=== PATIENT | female | born 1960 | race Caucasian/White ===

== ENCOUNTER 2023-07-16 07:18 | Inpatient (IN) | payer BC ==
[2023-07-16] MEDS ORDERED: NITROGLYCERIN SL TABS 0.4 MG TAB SUBLINGUAL STA ×3 (07:41)
[2023-07-16] MEDS ORDERED: ASPIRIN 81 MG PO STA (07:41)
--- NOTE | 2023-07-16 07:44 | ED ---
General Adult HPI - General Chief complaint: Chest Pain Stated complaint: chest pain Time Seen by Provider: 07/16/23 07:26 Source: patient, RN notes reviewed Mode of arrival: ambulatory Limitations: no limitations - History of Present Illness Initial comments: Patient is a pleasant 63-year-old female presenting to the emergency department with concerns for chest discomfort. Onset of symptoms was 2-3 days ago. Patient is having intermittent symptoms. Discomfort is currently 6/10. Discomfort feels dull. Patient did have some radiation to the arm. No dyspnea. No nausea. No diaphoresis. No history of similar symptoms previously. No calf pain. - Related Data Home Medications Medication Instructions Recorded Confirmed Cetirizine HCl [Zyrtec] 10 mg PO DAILY 07/05/16 07/16/23 Calcium(Unknown Dose) 1 tab PO DAILY 07/16/23 07/16/23 Fish Oil(Unknown Dose) 1 cap PO DAILY 07/16/23 07/16/23 Levothyroxine Sodium [Synthroid] 175 mcg PO DAILY 07/16/23 07/16/23 Vitamin B-12(Unknown Dose) 1 tab PO DAILY 07/16/23 07/16/23 Vitamin C(Unknown Dose) 1 tab PO DAILY 07/16/23 07/16/23 Vitamin D3(Unknown Dose) 1 tab PO DAILY 07/16/23 07/16/23 Allergies Allergy/AdvReac Type Severity Reaction Status Date / Time No Known Allergies Allergy Verified 07/16/23 08:12 Review of Systems ROS Statement: Those systems with pertinent positive or pertinent negative responses have been documented in the HPI. ROS Other: All systems not noted in ROS Statement are negative. Constitutional: Denies: fever Eyes: Denies: eye pain Respiratory: Denies: dyspnea Cardiovascular: Reports: chest pain Musculoskeletal: Denies: back pain Past Medical History Past Medical History: Thyroid Disorder Additional Past Medical History / Comment(s): Seasonal Allergies; Back problems History of Any Multi-Drug Resistant Organisms: None Reported Past Surgical History: Unable to Obtain, Back Surgery Past Psychological History: No Psychological Hx Reported Smoking Status: Never smoker Past Alcohol Use History: Occasional Past Drug Use History: None Reported General Exam Limitations: no limitations General appearance: alert, in no apparent distress Head exam: Present: atraumatic Eye exam: Present: normal appearance Neck exam: Present: normal inspection Respiratory exam: Present: normal lung sounds bilaterally. Absent: chest wall tenderness Cardiovascular Exam: Present: regular rate, normal rhythm Expanded Peripheral pulses: 2+: Radial (R), Radial (L), Dorsalis Pedis (R), Dorsalis Pedis (L) GI/Abdominal exam: Present: soft. Absent: tenderness Extremities exam: Present: normal inspection. Absent: pedal edema, calf tenderness Neurological exam: Present: alert Psychiatric exam: Present: normal affect, normal mood Skin exam: Present: normal color Course Vital Signs 07/16/23 07/16/23 07/16/23 07:23 07:25 08:15 Temperature 98.3 F Pulse Rate 78 63 Respiratory 20 18 Rate Blood Pressure 154/86 142/86 O2 Sat by Pulse 98 99 99 Oximetry EKG Findings - EKG Results: EKG: interpreted by SOMMERD (Right axis.), sinus rhythm, normal QRS, normal ST/T Medical Decision Making - Medical Decision Making Was pt. sent in by a medical professional or institution (, PA, MATHEMATICAL PHYSICIST, urgent care, hospital, or residential...) When possible be specific @ -[No] Did you speak to anyone other than the patient for history (EMS, parent, family, police, friend...)? What history was obtained from this source @ -[No] Did you review nursing and triage notes (agree or disagree)? Why? @ -[I reviewed and agree with nursing and triage notes] Were old charts reviewed (outside hosp., previous admission, EMS record, old EKG, old radiological studies, urgent care reports/EKG's, residential records)? Report findings @ -[No old charts were reviewed] Differential Diagnosis (chest pain, altered mental status, abdominal pain women, abdominal pain men, vaginal bleeding, weakness, fever, dyspnea, syncope, headache, dizziness, GI bleed, back pain, seizure, CVA, palpatations, mental health, musculoskeletal)? @ -Differential Chest Pain: Stable Angina, Unstable Angina, STEMI, NSTEMI Aortic Dissection, Pneumothorax, Musculoskeletal, Esophageal Spasm GERD, Cholecystitis, Pancreatitis, Zoster, this is not meant to be an all-inclusive list. EKG interpreted by me (3pts min.). @ -[As above] X-rays interpreted by me (1pt min.). @ -Chest x-ray shows right suprahilar fullness CT interpreted by me (1pt min.). @ -[None done] U/S interpreted by me (1pt. min.). @ -[None done] What testing was considered but not performed or refused? (CT, X-rays, U/S, labs)? Why? @ -[None] What meds were considered but not given or refused? Why? @ -[None] Did you discuss the management of the patient with other professionals (prof mery i.e. , PA, MATHEMATICAL PHYSICIST, lab, RT, psych nurse, group social worker, manager water, teacher, homicide squad commanding officer, trimming caser)? Give summary @ -Case discussed with [facility], Dr. Peace who will admit covering hospital call. Cardiology was placed on consult. Was smoking cessation discussed for >3mins.? @ -[No] Was critical care preformed (if so, how long)? @ -[No] Were there social determinants of health that impacted care today? How? (Homelessness, low income, unemployed, alcoholism, drug addiction, tra nsportation, low edu. Level, literacy, decrease access to med. care, long-term, rehab)? @ -[No] Was there de-escalation of care discussed even if they declined (Discuss DNR or withdrawal of care, Hospice)? DNR status @ -[No] What co-morbidities impacted this encounter? (DM, HTN, Smoking, COPD, CAD, Cancer, CVA, ARF, Chemo, Hep., AIDS, mental health diagnosis, sleep apnea, morbid obesity)? @ -[None] Was patient admitted / discharged? Hospital course, mention meds given and route, prescriptions, significant lab abnormalities, going to OR and other pertinent info. @ -Patient reevaluated and updated. Symptoms improved with aspirin and nitroglycerin. Patient will be held with cardiology consult and repeat testing and computed tomography scan. Admitted. Admission orders written. Undiagnosed new problem with uncertain prognosis? @ -[No] Drug Therapy requiring intensive monitoring for toxicity (Heparin, Nitro, Insulin, Cardizem)? @ -[No] Were any procedures done? @ -[No] Diagnosis/symptom? @ -Chest pain Acute, or Chronic, or Acute on Chronic? @ -Acute Uncomplicated (without systemic symptoms) or Complicated (systemic symptoms)? @ -[default] Side effects of treatment? @ -[No] Exacerbation, Progression, or Severe Exacerbation? @ -[No] Poses a threat to life or bodily function? How? (Chest pain, USA, MA, pneumonia, PE, COPD, DKA, ARF, appy, cholecystitis, CVA, Diverticulitis, Homicidal, Suicidal, threat to staff... and all critical care pts) @ -[No] - Lab Data Result diagrams: 07/16/23 07:41 07/16/23 07:41 Lab Results 07/16/23 07/16/23 07/16/23 Range/Units 07:41 07:41 07:41 WBC 5.9 (3.8-10.6) k/uL RBC 4.44 (3.80-5.40) m/uL Hgb 13.7 (11.4-16.0) gm/dL Hct 40.4 (34.0-46.0) % MCV 91.0 (80.0-100.0) fL MCH 30.9 (25.0-35.0) pg MCHC 33.9 (31.0-37.0) g/dL RDW 13.0 (11.5-15.5) % Plt Count 247 (150-450) k/uL MPV 7.6 Neutrophils % 52 % Lymphocytes % 34 % Monocytes % 6 % Eosinophils % 5 % Basophils % 1 % Neutrophils # 3.1 (1.3-7.7) k/uL Lymphocytes # 2.0 (1.0-4.8) k/uL Monocytes # 0.4 (0-1.0) k/uL Eosinophils # 0.3 (0-0.7) k/uL Basophils # 0.0 (0-0.2) k/uL PT 10.2 (9.0-12.0) sec INR 1.0 (<1.2) APTT 24.7 (22.0-30.0) sec D-Dimer 0.36 (<0.60) mg/L FEU Sodium 139 (137-145) mmol/L Potassium 4.5 (3.5-5.1) mmol/L Chloride 106 (98-107) mmol/L Carbon Dioxide 27 (22-30) mmol/L Anion Gap 6 mmol/L BUN 12 (7-17) mg/dL Creatinine 0.91 (0.52-1.04) mg/dL Est GFR (CKD-EPI)AfAm 78 (>60 ml/min/1.73 sqM) Est GFR (CKD-EPI)NonAf 67 (>60 ml/min/1.73 sqM) Glucose 111 H (74-99) mg/dL Calcium 9.3 (8.4-10.2) mg/dL Magnesium 2.2 (1.6-2.3) mg/dL Total Bilirubin 0.5 (0.2-1.3) mg/dL AST 26 (14-36) U/L ALT 21 (4-34) U/L Alkaline Phosphatase 77 (38-126) U/L Troponin I (0.000-0.034) ng/mL Total Protein 6.7 (6.3-8.2) g/dL Albumin 3.9 (3.5-5.0) g/dL 07/16/23 Range/Units 07:41 WBC (3.8-10.6) k/uL RBC (3.80-5.40) m/uL Hgb (11.4-16.0) gm/dL Hct (34.0-46.0) % MCV (80.0-100.0) fL MCH (25.0-35.0) pg MCHC (31.0-37.0) g/dL RDW (11.5-15.5) % Plt Count (150-450) k/uL MPV Neutrophils % % Lymphocytes % % Monocytes % % Eosinophils % % Basophils % % Neutrophils # (1.3-7.7) k/uL Lymphocytes # (1.0-4.8) k/uL Monocytes # (0-1.0) k/uL Eosinophils # (0-0.7) k/uL Basophils # (0-0.2) k/uL PT (9.0-12.0) sec INR (<1.2) APTT (22.0-30.0) sec D-Dimer (<0.60) mg/L FEU Sodium (137-145) mmol/L Potassium (3.5-5.1) mmol/L Chloride (98-107) mmol/L Carbon Dioxide (22-30) mmol/L Anion Gap mmol/L BUN (7-17) mg/dL Creatinine (0.52-1.04) mg/dL Est GFR (CKD-EPI)AfAm (>60 ml/min/1.73 sqM) Est GFR (CKD-EPI)NonAf (>60 ml/min/1.73 sqM) Glucose (74-99) mg/dL Calcium (8.4-10.2) mg/dL Magnesium (1.6-2.3) mg/dL Total Bilirubin (0.2-1.3) mg/dL AST (14-36) U/L ALT (4-34) U/L Alkaline Phosphatase (38-126) U/L Troponin I <0.012 (0.000-0.034) ng/mL Total Protein (6.3-8.2) g/dL Albumin (3.5-5.0) g/dL Disposition Clinical Impression: Chest pain Disposition: ADMITTED IP TO THIS HOSP Is patient prescribed a controlled substance at d/c from ED?: No Referrals: Nonstaff,Physician [Primary Care Provider] - 1-2 days Time of Disposition: 09:28
[2023-07-16 08:10] LABS: Basophils % (A) 1 %; Eosinophils # (A) 0.3 k/uL (0-0.7); Eosinophils % (A) 5 %; HCT 40.4 % (34.0-46.0); HGB 13.7 gm/dL (11.4-16.0); Lymphocytes % (A) 34 %; MCH 30.9 pg (25.0-35.0); MCHC 33.9 g/dL (31.0-37.0); Mean Platelet Volume 7.6; Monocytes # (A) 0.4 k/uL (0-1.0); Monocytes % (A) 6 %; Neutrophils # (A) 3.1 k/uL (1.3-7.7); Neutrophils % (A) 52 %; Platelet Count 247 k/uL (150-450); RBC 4.44 m/uL (3.80-5.40); WBC 5.9 k/uL (3.8-10.6)
--- NOTE | 2023-07-16 08:12 | XR ---
EXAMINATION TYPE: XR chest 2V DATE OF EXAM: 07/16/2023 COMPARISON: NONE TECHNIQUE: PA and lateral views submitted. HISTORY: Chest pain FINDINGS: The lungs are clear and there is no pneumothorax, pleural effusion, or focal pneumonia. Heart size normal and no overt failure. Osseous structures intact. Prominence of the right suprahilar. Recommend CT scan to assess for aneurysm or mass. IMPRESSION: 1. Prominence of the right suprahilar region recommend CT scan to assess for mass versus aneurysm.
[2023-07-16 08:21] LABS: Partial Thromboplastin Time 24.7 sec (22.0-30.0); Prothrombin Time 10.2 sec (9.0-12.0)
[2023-07-16 08:27] LABS: ALT 21 U/L (4-34); AST 26 U/L (14-36); African American GFR (CKD) 78 (>60 ml/min/1.73 sqM); Albumin 3.9 g/dL (3.5-5.0); Alkaline Phosphatase 77 U/L (38-126); Anion Gap 6 mmol/L; Blood Urea Nitrogen 12 mg/dL (7-17); Calcium 9.3 mg/dL (8.4-10.2); Carbon Dioxide 27 mmol/L (22-30); Chloride 106 mmol/L (98-107); Glucose 111 mg/dL (74-99); Magnesium 2.2 mg/dL (1.6-2.3); Non-African American GFR(CKD) 67 (>60 ml/min/1.73 sqM); Potassium 4.5 mmol/L (3.5-5.1); Sodium 139 mmol/L (137-145); Total Bilirubin 0.5 mg/dL (0.2-1.3); Total Protein 6.7 g/dL (6.3-8.2)
[2023-07-16] MEDS ORDERED: NITROGLYCERIN SL TABS 0.4 MG TAB SUBLINGUAL PRN (09:30)
--- NOTE | 2023-07-16 10:22 | CT ---
EXAMINATION TYPE: CT angio chest CT DLP: 512.8 mGycm, Automated exposure control for dose reduction was used. DATE OF EXAM: 07/16/2023 10:13 AM COMPARISON: Chest radiograph from same day. CLINICAL INDICATION:Female, 63 years old with history of eval right suprahilar; chest pain down left arm x3 days TECHNIQUE/CONTRAST: CTA scan of the thorax is performed with IV Contrast, patient injected with 100 mL of Isovue 370, pul monary embolism protocol. MIP images are created and reviewed. FINDINGS: Pulmonary Artery: There is no evidence for a filling defect within the pulmonary vasculature to sugge st acute pulmonary embolism. The pulmonary artery is of normal size. Lungs/Pleura: No evidence of focal consolidation, pleural effusion or pneumothorax. No suspicious pul monary nodule or mass. Airway: Large airways are patent. Heart: Heart is within normal limits for size.. No pericardial effusion. Vasculature: No evidence of aortic aneurysm. Mediastinum: No evidence of adenopathy. Musculoskeletal: No acute osseous abnormalities. Chronic appearing anterior wedge compression deformi ty of the L1 vertebral body with approximately 10% height loss and no retropulsion. Mild multilevel d egenerative disease. Soft Tissues: Unremarkable. Lower neck: No significant findings. Upper Abdomen: Postsurgical changes from gastric sleeve. Mild to moderate size hiatal hernia. Postcho lecystectomy changes. Small fat filled ventral wall epigastric hernia.. IMPRESSION: 1. No evidence of pulmonary embolism or acute thoracic process. 2. No evidence of pulmonary mass. Right suprahilar region prominence corresponds to the right main pu lmonary artery. 3. Postsurgical changes from gastric sleeve with mild to moderate size hiatal hernia.
[2023-07-16] MEDS: NITROGLYCERIN OINT 1 INCH/GM PACKET TOPICAL SCH ×3 (11:41→23:23)
--- NOTE | 2023-07-16 13:35 | CONS ---
CONSULTATION CHIEF COMPLAINT: Chest pain. HISTORY OF PRESENT ILLNESS: This is a 63-year-old lady with history of hypothyroidism on Synthroid, who presented to hospital complaining of discomfort involving her chest and left arm. She has had 2 or 3 episodes over the last few days, had an episode of discomfort early this morning, concerned and came to the ER at [facility]. At the time of my evaluation, she appears comfortable at rest. Her chest discomfort is improving. EKG shows normal sinus rhythm, normal axis, normal intervals. Cardiac enzymes have been negative. Her potassium is 4.5, creatinine is 0.9, hemoglobin is 13.7. The patient's chest discomfort seems atypical and she really does not have any significant coronary risk factors other than her father having coronary artery disease in his 50s. I am going to obtain serial CPKs and troponins and echocardiogram and if she rules out for myocardial infarction, schedule her for a stress test tomorrow morning. PAST MEDICAL HISTORY: Significant for hypothyroidism. MEDICATIONS: Synthroid. ALLERGIES: As charted. FAMILY HISTORY: Significant for coronary artery disease in father. SOCIAL HISTORY: Negative for smoking, EtOH, or drug abuse. REVIEW OF SYSTEMS: HEENT: Unremarkable. CARDIAC: As described above. RESPIRATORY: Negative. GI: Negative. GENITOURINARY: Negative. ALLERGY/IMMUNOLOGY: Negative. SKIN: Negative. MUSCULOSKELETAL: Negative. ENDOCRINE: Negative. DERM: Negative. CONSTITUTIONAL: Negative. ONCOLOGICAL: Negative. Rest of the system review is not relevant. PHYSICAL EXAMINATION: GENERAL: Comfortable at rest. VITAL SIGNS: Stable. NECK: There is no jugular venous distention. Carotid upstroke is normal. There is no bruit. CHEST: Reveals good air entry bilaterally. HEART: Reveals first and second heart sounds. No gallop. No murmur. No rub. ABDOMEN: Soft, nontender. EXTREMITIES: Exam of extremities did not reveal any edema. Peripheral pulses are felt. LABORATORY DATA: Tropes are negative. EKG is normal. ASSESSMENT AND PLAN: Precordial chest pain, atypical. I will obtain serial CPKs, obtain an echocardiogram and schedule her for a stress test tomorrow morning. MMODL / IJN: [id number] /
--- NOTE | 2023-07-16 17:53 | CA ---
Transthoracic Echo Report Name: Katerine White Age: 63 Gender: F : 1960 Exam Date: 07/16/2023 14:16 Exam Location: [facility] Ht (in): 66 Wt (lb): 210 Ordering Physician: Gretel Stoll Attending/Referring Phys: [id number], [employer] Bailey Frey [facility] Procedure CPT: Indications: LV function, CP Cardiac Hx: Technical Quality: Fair Contrast 1: Total Dose (mL): Contrast 2: Total Dose (mL): MEASUREMENTS (Male / Female) Normal Values 2D ECHO LV Diastolic Diameter PLAX 4.3 cm 4.2 - 5.9 / 3.9 - 5.3 cm LV Systolic Diameter PLAX 2.9 cm IVS Diastolic Thickness 1.0 cm 0.6 - 1.0 / 0.6 - 0.9 cm LVPW Diastolic Thickness 0.8 cm 0.6 - 1.0 / 0.6 - 0.9 cm LV Relative Wall Thickness 0.4 Ascending Aorta Diameter 3.4 cm M-MODE Aortic Root Diameter MM 2.7 cm LA Systolic Diameter MM 3.9 cm LA Ao Ratio MM 1.5 AV Cusp Separation MM 2.2 cm DOPPLER AV Peak Velocity 128.4 cm/s AV Peak Gradient 6.6 mmHg AV Mean Velocity 95.5 cm/s AV Mean Gradient 4.1 mmHg AV Velocity Time Integral 29.4 cm LVOT Peak Velocity 117.1 cm/s LVOT Peak Gradient 5.5 mmHg LVOT Velocity Time Integral 25.6 cm Mitral E Point Velocity 79.9 cm/s Mitral A Point Velocity 75.7 cm/s Mitral E to A Ratio 1.1 MV Deceleration Time 153.4 ms LV E' Lateral Velocity 9.8 cm/s Mitral E to LV E' Lateral Ratio 8.1 LV E' Septal Velocity 8.4 cm/s Mitral E to LV E' Septal Ratio 9.5 TR Peak Velocity 252.3 cm/s TR Peak Gradient 25.5 mmHg Right Atrial Pressure 3.0 mmHg Pulmonary Artery Systolic Pressu 28.5 mmHg Right Ventricular Systolic Press 30.5 mmHg FINDINGS Left Ventricle Normal Left ventricular size, wall thickness, systolic function with no obvious regional wall motion abnormalities. Left ventricular ejection fraction is estimated at 60-65%. Right Ventricle Moderate right ventricular dilatation. Mild pulmonary hypertension. Right Atrium Mild right atrial dilatation. Left Atrium Mild left atrial dilatation. Mitral Valve Structurally normal mitral valve. Trace mitral regurgitation. Aortic Valve Trileaflet aortic valve. No aortic valve stenosis or regurgitation. Tricuspid Valve Structurally normal tricuspid valve. Mild tricuspid regurgitation. Pulmonic Valve Structurally normal pulmonic valve. No pulmonic regurgitation. Pericardium No pericardial effusion. Echo free space anterior to the right ventricle likely represents a fat pad. Aorta Normal size aortic root and proximal ascending aorta. CONCLUSIONS Normal LV function Previewed by: Dr. Jimy Ramírez MD (Electronically Signed) Final Date: 16 July 2023 17:52
[2023-07-17 03:19] VITALS: RESP 16
[2023-07-17] MEDS: NITROGLYCERIN OINT 1 INCH/GM PACKET TOPICAL SCH (06:14)
[2023-07-17] MEDS ORDERED: LEVOTHYROXINE 100 MCG TAB PO SCH (06:30)
[2023-07-17] MEDS ORDERED: LEVOTHYROXINE 75 MCG TAB PO SCH (06:30)
[2023-07-17] MEDS ORDERED: FISH OIL PO SCH (09:00)
[2023-07-17] MEDS ORDERED: LORATADINE 10 MG TAB PO SCH (09:00)
[2023-07-17] MEDS ORDERED: ASPIRIN 81 MG PO SCH (09:00)
[2023-07-17] MEDS ORDERED: ASPIRIN 325 MG TAB PO SCH (09:00)
--- NOTE | 2023-07-17 09:25 | P.PN ---
Subjective HISTORY OF PRESENT ILLNESS: This is a 63-year-old female who presented to the hospital with a chief complaint of chest discomfort. Patient examined this morning at the bedside. Patient states she is feeling much better compared to yesterday. She denies any chest pain or pressure. She denies any shortness of breath. Troponins are negative 3. Echocardiogram completed revealing ejection fraction 60-65% with mild TR. PHYSICAL EXAM: VITAL SIGNS: Reviewed. GENERAL: Well-developed in no acute distress. NECK: Supple. No JVD or thyromegaly LUNGS: Respirations even and unlabored. Lungs essentially clear to auscultation bilaterally. HEART: Regular rate and rhythm. S1 and S2 heard. EXTREMITIES: Normal range of motion. No clubbing or cyanosis. Peripheral pulses intact. No lower extremity edema ASSESSMENT: Chest pain, troponins negative 3 Hypothyroidism PLAN: 2-D echo obtained and reviewed Patient to undergo stress echo today If stress echo is negative, patient may be discharged home today from a cardiac standpoint Nurse practitioner note has been reviewed by physician. Signing provider agrees with the documented findings, assessment, and plan of care. Objective - Vital Signs Vital signs: Vital Signs Temp 97.8 F 07/17/23 08:00 Pulse 55 L 07/17/23 08:00 Resp 16 07/17/23 08:00 BP 115/79 07/17/23 08:00 Pulse Ox 96 07/17/23 08:46 FiO2 21 07/17/23 08:46 Intake & Output 07/16/23 07/17/23 07/17/23 18:59 06:59 18:59 Weight 95.254 kg 95.254 kg Other: Voiding Method Toilet # Voids 2 - Labs CBC & Chem 7: 07/16/23 07:41 07/16/23 07:41
[2023-07-17 09:27] LABS: Chol/HDL Ratio 3.56 Ratio; LDL Cholesterol,Calculated 121.6 mg/dL (0.0-131.0)
--- NOTE | 2023-07-17 10:57 | CA ---
Stress Echo Report Katerine White Age: 63 Gender: F : 1960 Exam Date: 07/17/2023 09:44 Exam Location: [facility] Stress Ht (in): 66 Wt (lb): 210 Ordering Physician: Gretel Stoll Referring Physician: [id number] Consultant: Marty Szymanski Technologist Procedure CPT: Indication: CP ICD-9 Codes: Rhythm: Patient History: Cardiac Medications: Medications in past 24 hours: Contrast: Stress Results Protocol: Phan Total dose(mL): Exercise Duration (min:sec): 9:[address] Depression (mm): Angina Score: Ibarra Score: METS: 10.5 Resting HR: 85 Resting BP: 130 / 93 Peak HR: 168 Peak BP: 216 / 78 Max Predicted HR: 157 107 % Max Predicted HR Target HR: 133 Double Product: [id number] Stress Summary: BP Response: Reason for Termination: MAX EXERTION/TARGET HR Cardiac Symptoms: NO SYMPTOMS ECG Analysis Resting ECG: Normal sinus rhythm normal axis normal intervals Stress ECG: Patient exercised on Phan protocol for a total of 9 minutes achieving 85% of predicted maximal heart rate with [address] segment depression in inferolateral leads Arrhythmia: Echo Analysis Resting Echo: Normal left ventricular size wall motion systolic function Peak Echo Analysis: Post exercise there is exercise induced wall motion abnormality involving the septum suggestive of ischemia in LAD distribution MEASUREMENTS (Male/Female) Normal Values CONCLUSIONS Good exercise tolerance Abnormal stress test by EKG criteria Abnormal stress echo Dr. Jimy Ramírez MD (Electronically Signed) Final Date: 17 July 2023 10:56
[2023-07-17] MEDS ORDERED: ASPIRIN 325 MG TAB PO STA (11:10)
[2023-07-17] MEDS ORDERED: NITROGLYCERIN SL TABS 0.4 MG TAB SUBLINGUAL PRN (11:10)
[2023-07-17] MEDS ORDERED: ALPRAZolam 0.5 MG TAB PO PRN (11:10)
[2023-07-17] MEDS ORDERED: ALPRAZolam 0.25 MG TAB PO PRN (11:10)
[2023-07-17] MEDS ORDERED: ATORVASTATIN 80 MG TAB PO STA (11:10)
[2023-07-17] MEDS ORDERED: SODIUM CHLORIDE 0.9% 1,000 ML in EMPTY BAG 1 BAG IV SCH (11:15)
[2023-07-17] MEDS ORDERED: VERAPAMIL 2.5 MG/ML 2 ML AMP ONE (11:37)
[2023-07-17] MEDS ORDERED: ASPIRIN 81 MG PO STA (11:48)
[2023-07-17] MEDS ORDERED: IV FLUID CONTINUATION 1,000 ML IV ONE (12:20)
[2023-07-17] MEDS ORDERED: MIDAZOLAM 2 MG/2 ML VIAL IVP ONE (12:32)
[2023-07-17] MEDS ORDERED: LIDOCAINE 1% INJ 10MG/ML (5 ML VIAL-PF) SQ ONE (12:32)
[2023-07-17] MEDS ORDERED: HEPARIN SODIUM 1,000 UN/ML (10ML VL) ONE (12:34)
[2023-07-17] MEDS ORDERED: VERAPAMIL SYRINGE (5 MG/10 ML) INTRAARTER ONE (12:34)
[2023-07-17] MEDS ORDERED: fentaNYL (PF) 50 MCG/ML 2 ML AMP ONE (12:34)
[2023-07-17] MEDS ORDERED: fentaNYL (PF) 50 MCG/ML 2 ML AMP IVP ONE (12:34)
[2023-07-17] MEDS ORDERED: HEPARIN SODIUM 1,000 UN/ML (10ML VL) IV ONE (12:36)
[2023-07-17] MEDS ORDERED: IOPAMIDOL-370 100ML BTL INJ ONE (12:42)
[2023-07-17] MEDS ORDERED: RX INFO: IV CONTRAST WAS GIVEN 1 EACH MISC MISCELLANE PRN (12:45)
[2023-07-17] MEDS ORDERED: SODIUM CHLORIDE 0.9% 1,000 ML IV SCH (12:45)
--- NOTE | 2023-07-17 12:48 | P.PCN ---
Date of Procedure: 07/17/23 Operative Findings: CARDIAC CATHETERIZATION PERFORMING PHYSICIAN: Forrest Rey MD, RPVI PROCEDURE PERFORMED: 1. Selective right and left coronary angiogram 2. Left heart catheterization INDICATION: Chest discomfort in this is a 63-year-old lady who underwent a stress test and that came in to be abnormal COMPLICATION: None APPROACH: Right radial artery LEVEL OF SEDATION: Moderate with a sedation length of 10 minutes PROCEDURE DESCRIPTION: After obtaining an informed consent, the patient was brought to cardiac electrical laboratory technician. Local anesthesia was performed using lidocaine subcutaneously. The right radial artery was cannulated using Seldinger technique, the guidewire passed easily, following that we advanced a 5-Irish sheath dilator assembly, the wire and dilator were removed and sheath was flushed. Following that, 2 mg of verapamil along with 5000 unit heparin were given. Selective right and left coronary angiogram using a 6-Irish JR4 and JL 3.5 catheters. Following that we did left heart catheterization using 6-Irish pigtail catheter. The procedure was completed there was no complication. SELECTIVE CORONARY ANGIOGRAM: The right coronary artery: Large-caliber vessel and a dominant vessel. The RCA is angiographically normal Left main: Is angiographically normal. Bifurcates into an LCx and LAD The left circumflex: Large caliber vessel nondominant vessel and appears to be angiographically normal and gives rises into an OM which seems to be normal The left anterior descending artery: Is angiographically normal. Gives rise into a large diagonal branch which seems to be normal HEMODYNAMICS: The LVEDP was 4 mmHg was no gradient across aortic valve CONCLUSION: 1. Normal coronary angiogram 2. Low left-sided filling pressure POSTPROCEDURE MANAGEMENT: Medical treatment
--- NOTE | 2023-07-17 13:08 | P.HPIM ---
History of Present Illness H&P Date: 07/17/23 History of present illness; patient is a 63-year-old lady with past medical sign ificant for hypothyroidism who presented to the ER for chest discomfort going on for the last 3 days. Patient states this chest discomfort is most likely pressure located in the left side, radiating to the back pain and left shoulder. Denies any aggravating or relieving factors associated with chest pressure. It is intermittent. Denies any shortness of breath. Denies any nausea or vomiting associated with this chest pressure. Because of this chest pressure, patient came to the ER Initial lab work done in the ER showed WBC 5.9, hemoglobin 13.7, platelet count 247, sodium today about 0.5, BUN 12, creatinine 0.91, troponin 0.012 EKG done in the ER Chest CT done showed no evidence of pulmonary embolism or acute thoracic process, no evidence of pulmonary mass. Right suprahilar region prominence This corresponds right main pulmonary artery Chest x-ray done in the ER showed prominence of right hilar region recommend computed tomography scan to assess for mass versus aneurysm Patient admitted to medicine service REVIEW OF SYSTEMS: CONSTITUTIONAL: No fever, no malaise, no fatigue. HEENT: No recent visual problems or hearing problems. Denied any sore throat. CARDIOVASCULAR: As mentioned in HPI PULMONARY: No shortness of breath, no cough, no hemoptysis. GASTROINTESTINAL: No diarrhea, no nausea, no vomiting, no abdominal pain. NEUROLOGICAL: No headaches, no weakness, no numbness. HEMATOLOGICAL: Denies any bleeding or petechiae. GENITOURINARY: Denies any burning micturition, frequency, or urgency. MUSCULOSKELETAL/RHEUMATOLOGICAL: Denies any joint pain, swelling, or any muscle pain. ENDOCRINE: Denies any polyuria or polydipsia. The rest of the 14-point review of systems is negative. PHYSICAL EXAMINATION: GENERAL: The patient is alert and oriented x3, not in any acute distress. Well developed, well nourished. HEENT: Pupils are round and equally reacting to light. EOMI. No scleral icterus. No conjunctival pallor. Normocephalic, atraumatic. No pharyngeal erythema. No thyromegaly. CARDIOVASCULAR: S1 and S2 present. No murmurs, rubs, or gallops. PULMONARY: Chest is clear to auscultation, no wheezing or crackles. ABDOMEN: Soft, nontender, nondistended, normoactive bowel sounds. No palpable organomegaly. MUSCULOSKELETAL: No joint swelling or deformity. EXTREMITIES: No cyanosis, clubbing, or pedal edema. NEUROLOGICAL: Gross neurological examination did not reveal any focal deficits. SKIN: No rashes. Assessment and plan Chest pain Hypothyroidism Monitor vital signs Monitor CBC Monitor CMP Continue telemetry monitoring Trend troponins. Ordered 2-D echo Resume home meds Consult cardiology Labs and medication were reviewed.. Continue same treatment. Continue with symptomatic treatment. Resume home medication. Monitor labs and vitals. DVT and GI prophylaxis. Further recommendations as per clinical course of the patient Dictation was produced using [employer] dictation software. please excuse any grammatical, word or spelling errors. Past Medical History Past Medical History: Thyroid Disorder Additional Past Medical History / Comment(s): Seasonal Allergies; Back problems History of Any Multi-Drug Resistant Organisms: None Reported Past Surgical History: Back Surgery Past Psychological History: No Psychological Hx Reported Smoking Status: Never smoker Past Alcohol Use History: Occasional Past Drug Use History: None Reported Medications and Allergies Home Medications Medication Instructions Recorded Confirmed Type Cetirizine HCl [Zyrtec] 10 mg PO DAILY 07/05/16 07/16/23 History Calcium(Unknown Dose) 1 tab PO DAILY 07/16/23 07/16/23 History Fish Oil(Unknown Dose) 1 cap PO DAILY 07/16/23 07/16/23 History Levothyroxine Sodium [Synthroid] 175 mcg PO DAILY 07/16/23 07/16/23 History Vitamin B-12(Unknown Dose) 1 tab PO DAILY 07/16/23 07/16/23 History Vitamin C(Unknown Dose) 1 tab PO DAILY 07/16/23 07/16/23 History Vitamin D3(Unknown Dose) 1 tab PO DAILY 07/16/23 07/16/23 History Allergies Allergy/AdvReac Type Severity Reaction Status Date / Time No Known Allergies Allergy Verified 07/16/23 08:12 Physical Exam Vitals: Vital Signs Temp Pulse Pulse Resp BP BP BP 07/17/23 08:46 07/17/23 08:00 97.8 F 55 L 16 115/79 07/17/23 02:16 98.2 F 56 L 16 111/72 07/16/23 19:31 64 18 140/83 07/16/23 19:00 98.2 F 62 15 147/79 07/16/23 18:00 73 16 141/74 07/16/23 17:00 97.9 F 56 L 18 140/80 07/16/23 15:08 63 18 141/83 07/16/23 13:34 63 19 141/84 Pulse Ox FiO2 07/17/23 08:46 96 21 07/17/23 08:00 96 07/17/23 02:16 96 07/16/23 19:31 98 07/16/23 19:00 98 07/16/23 18:00 98 07/16/23 17:00 99 07/16/23 15:08 97 07/16/23 13:34 97 Intake and Output 07/16/23 07/17/23 07/17/23 22:59 06:59 14:59 Intake Total 100 Balance 100 Intake: IV 100 Other: Voiding Method Toilet # Voids 1 2 Weight 95.254 kg Results CBC & Chem 7: 07/16/23 07:41 07/16/23 07:41 Labs: Abnormal Lab Results - Last 24 Hours (Table) 07/16/23 Range/Units 07:41 Cholesterol 206.00 H (0.00-200.00) mg/dL Thrombosis Risk Factor Assmnt - Choose All That Apply Each Factor Represents 1 point: Obesity (BMI >25) Each Risk Factor Represents 2 Points: Age 61-74 years Thrombosis Risk Factor Assessment Total Risk Factor Score: 3 Thrombosis Risk Factor Assessment Level: Moderate Risk
[2023-07-17 17:03] VITALS: BP 132/82; PULSE 67; TEMP 98
[2023-07-17] MEDS ORDERED: ATORVASTATIN 20 MG TAB PO SCH (21:00)
[2023-07-18] MEDS ORDERED: HEPARIN SODIUM,PORCINE 10,000 UNIT in SODIUM CHLORIDE 0.9% 1,000 ML IRRIGATION PRN (07:00)
[2023-07-18] MEDS ORDERED: HEPARIN SODIUM,PORCINE (1 ML) 2,500 UNIT in SODIUM CHLORIDE 0.9% 250 ML IRRIGATION PRN (07:00)
== END 2023-07-17 16:52 | disposition home or self-care (01) | DRG 287 ==
LOC: EC 07:18 → 6NMEDSUR 09:30 → OBSVTOIN 07-17 11:05
PROVIDERS: ADMIT Internal Medicine; ATTEND Internal Medicine
PROC: B2111ZZ Fluoroscopy of Multiple Coronary Arteries using Low Osmolar Contrast (ICD-10-PCS; 2023-07-17)
PROC: 4A023N7 Measurement of Cardiac Sampling and Pressure, Left Heart, Percutaneous Approach (ICD-10-PCS; principal; 2023-07-17 11:00)
DX: R07.9 Chest pain, unspecified (principal); E03.9 Hypothyroidism, unspecified; K21.9 Gastro-esophageal reflux disease without esophagitis; Z79.890 Hormone replacement therapy; Z82.49 Family history of ischemic heart disease and other diseases of the circulatory system
CPT/HCPCS: 36415; 71046; 71275; 80053; 80061; 83735; 84484; 85025; 85379; 85610; 85730; 93005; 93306; 93351; 93458; 94760; 99285